=== PATIENT | male | born 1935 | race Hispanic/Latino ===

== ENCOUNTER 2017-02-17 17:12 | Inpatient (IN) | payer MEDICARE ==
--- NOTE | 2017-02-17 17:49 | ED PDOC ---
HPI: Altered Mental Status <Michelle Champagne - Last Filed: 02/17/17 22:33> Additional Complaint(s): Patient is an 81 y/o M with colon cancer, anemia, dm, sent from [facility] who was supposed to be transferred to [facility], but came to [facility], with DNR/DNI, sent for O2 desat to 88%. Patinet non-verbal and unable to provide additional history <Faviola Patterson - Last Filed: 02/22/17 11:25> Time Seen by Provider: 02/17/17 17:37 Chief Complaint (Nursing): Weakness/Neurological Deficit Past Medical History Vital Signs: Last Vital Signs Temp 97.3 F L 02/17/17 19:58 Pulse 75 02/17/17 19:58 Resp 18 02/17/17 19:58 BP 82/46 L 02/17/17 19:58 Pulse Ox 98 02/17/17 21:56 <Michelle Champagne - Last Filed: 02/17/17 22:33> Vital Signs: Last Vital Signs Temp 96.7 F L 02/17/17 17:16 Pulse 85 02/17/17 17:16 Resp 16 02/17/17 17:16 BP 81/54 L 02/17/17 17:16 Pulse Ox 98 02/17/17 17:16 - Family History Family History: States: Unknown Family Hx <Faviola Patterson - Last Filed: 02/22/17 11:25> - Home Medications Home Medications: Ambulatory Orders Medication Instructions Recorded Acetaminophen [Tylenol 325mg tab] 650 mg PO Q4H PRN 02/17/17 Acetaminophen [Tylenol 325mg tab] 650 mg PO Q4H PRN 02/17/17 Albuterol/Ipratropium [Duoneb 3 3 ml IH Q8H 02/17/17 mg/0.5 mg (3 ml) UD] Budesonide [Uceris] 9 mg PO DAILY 02/17/17 Famotidine [Pepcid] 20 mg PO DAILY 02/17/17 Finasteride [Proscar] 5 mg PO DAILY 02/17/17 Latanoprost [Xalatan] 1 drop EACHEYE HS 02/17/17 Linagliptin [Tradjenta] 5 mg PO DAILY 02/17/17 Mag Hydrox/Aluminum Hyd/Simeth 30 ml PO Q4H PRN 02/17/17 [Maalox Advanced Suspension] Magnesium Hydroxide [Milk Of 30 ml PO DAILY PRN 02/17/17 Magnesia] Mesalamine [Asacol HD 800mg] 800 mg PO BID 02/17/17 Saccharomyces Boulardi [Florastor] 250 mg PO BID 02/17/17 Saliva Substitute [Caphosol 15 ml] 2 spray PO QID 02/17/17 Silver Sulfadiazine 1% [Silvadene 1 appl TOP QSHIFT 02/17/17 1%] Tamsulosin [Flomax] 0.8 mg PO HS 02/17/17 Timolol 0.25% Ophth [Timoptic 1 drop EACHEYE DAILY 02/17/17 0.25% Ophth Soln] Vitamin A & D [Vitamin A & D Oint 1 appl TOP QSHIFT 02/17/17 UD Foilpak] cefTRIAXone 1 gm [Rocephin 1 gram 1 gm IVPB DAILY 02/17/17 IVPB] guaiFENesin [Robitussin] 10 ml PO Q6H PRN 02/17/17 - Allergies Allergies/Adverse Reactions: Allergies Allergy/AdvReac Type Severity Reaction Status Date / Time No Known Allergies Allergy Verified 02/17/17 17:15 Review of Systems Review Of Systems: ROS cannot be obtained secondary to pt's inabilty to answer questions. <Faviola Patterson - Last Filed: 02/22/17 11:25> Physical Exam - Physical Exam Appears: Positive for: No Acute Distress (pale, lethargic, non-verbal) Skin: Positive for: Pallor Neck: Positive for: Supple Cardiovascular/Chest: Positive for: Regular Rate, Rhythm, Other (tachypneic) Respiratory: Positive for: Normal Breath Sounds. Negative for: Crackles, Rales , Rhonchi Gastrointestinal/Abdominal: Positive for: Soft. Negative for: Tenderness Extremity: Positive for: Other (moving extremities x 4) Neurologic/Psych: Positive for: Alert <Faviola Patterson - Last Filed: 02/22/17 11:25> - Laboratory Results Result Diagrams: 02/17/17 18:10 02/17/17 18:10 <Michelle Champagne A - Last Filed: 02/17/17 22:33> - Laboratory Results Result Diagrams: 02/18/17 12:05 02/18/17 12:05 - ECG O2 Sat by Pulse Oximetry: 98 <Faviola Patterson - Last Filed: 02/22/17 11:25> Medical Decision Making Medical Decision Making: Patient non-verbal and unable to communicate. Call placed to nephew Eb Joseph [phone] as DNR/DNI says "limited treatment" and wanted to clarify. He is reporting that patient is DNR/DNI with measures including ivf, pain medication and antibiotics but not invasive measures such as central line placement and pressors. Due to hypotension and lactate 1.6 and due to concern for infection, 1L IVF ordered with antibiotics (will monitor respiratory status as already hypoxic on arrival and unknown chf/ejection fraction). Blood cultures and urine cultures ordered. UA pending. Cxray negative for infiltrate. BNP elevated so will monitor respiratory status. EKG shows NSR at 87bpm with 1st degree AV block, LAD, RBBB, and st changes, but no stemi. Will sign out to Dr. Villalta to await remaining labs and admit <Faviola Patterson - Last Filed: 02/22/17 11:25> Disposition <Michelle Champagne A - Last Filed: 02/17/17 22:33> - Disposition Disposition Time: 19:00 - Pt Status Changed To: Hospital Disposition Of: Inpatient - Admit Certification Admit to Inpatient:: After my assessment, the patient will require hospitalization for at least two midnights. This is because of the severity of symptoms shown, intensity of services needed, and/or the medical risk in this patient being treated as an outpatient. <Faviola Patterson - Last Filed: 02/22/17 11:25> - Clinical Impression Clinical Impression: Hypoxia, Altered mental status, Pneumonia, Sepsis, UTI (urinary tract infection ) - Disposition Condition: SERIOUS
[2017-02-17] MEDS ORDERED: Sodium Chloride 0.9% 500 ML IV ONE ×2 (17:52→18:40)
[2017-02-17 18:16] LABS: BASO % 0.3 % (0.0-2.0); EOS # 0.1 K/uL (0.0-0.7); HEMOGLOBIN 10.1 g/dL (12.0-18.0); LYMPH # 0.1 K/uL (1.0-4.3); LYMPH % 2.3 % (20.0-40.0); MEAN CORPUSCULAR HEMOGLOBIN 28.8 pg (27.0-31.0); MEAN CORPUSCULAR HGB CONC 31.2 g/dL (33.0-37.0); MEAN PLATELET VOLUME 10.8 fl (7.2-11.7); MONO # 0.1 K/uL (0.0-0.8); MONO % 0.9 % (0.0-10.0); NEUT # 5.7 K/uL (1.8-7.0); NEUT % 95.5 % (50.0-75.0); PLATELET COUNT 111 K/uL (130-400); RBC 3.52 Mil/uL (4.40-5.90); RED CELL DISTRIBUTION WIDTH 19.9 % (11.5-14.5)
[2017-02-17 18:29] LABS: VENOUS BLOOD GAS BASE EXCESS -7.9 mmol/L (0.0-2.0); VENOUS BLOOD GAS PCO2 31 mmHg (40-60); VENOUS BLOOD GAS PO2 50 mm/Hg (30-55); VENOUS BLOOD PH 7.34 (7.32-7.43)
[2017-02-17] MEDS ORDERED: cefTRIAXone 1,000 MG in PED IV SYRINGE 1 SYR IVPB STA (18:46)
[2017-02-17 18:53] LABS: ALB/GLOB RATIO 0.8 (1.0-2.1); ALBUMIN 2.3 g/dL (3.5-5.0); ALT/SGPT 26 U/L (21-72); AST/SGOT 6 U/L (17-59); B-TYPE NATRIURETIC PEPTIDE 2440 pg/ml (0-900); BLOOD UREA NITROGEN 65 mg/dl (9-20); CALCIUM 10.6 mg/dL (8.4-10.2); CK-MB 0.69 ng/mL (0.0-3.38); GFR AFRICAN-AMERICAN 54; GFR NON-AFRICAN AMERICAN 45; MAGNESIUM 2.3 MG/DL (1.6-2.3)
[2017-02-17] MEDS ORDERED: Sodium Chloride 0.9% 1,000 ML IV SCH (19:00)
[2017-02-17 19:12] LABS: ABG ALLEN TEST YES; ARTERIAL BLOOD GAS HCO3 17.5 mmol/L (21-28); ARTERIAL BLOOD GAS HEMOGLOBIN 9.6 g/dL (11.7-17.4); ARTERIAL BLOOD GAS O2 CAPACITY 13.4 mL/dL (16-24); ARTERIAL BLOOD GAS O2 CONTENT 13.3 ML/dL (15-23); ARTERIAL BLOOD GAS O2 SAT 99.4 % (95-98); ARTERIAL BLOOD GAS PCO2 27 mm/Hg (35-45); ARTERIAL BLOOD GAS PH 7.35 (7.35-7.45); ARTERIAL BLOOD GAS PO2 124 mm/Hg (80-100); ARTERIAL BLOOD GAS TCO2 15.7 mmol/L (22-28)
[2017-02-17] MEDS ORDERED: Iodixanol 320 MG/ML 100 ML BOTTLE IV ONE (19:28)
[2017-02-17] MEDS ORDERED: Sodium Chloride 0.9% 50 ML IV ONE (19:29)
--- NOTE | 2017-02-17 19:44 | ED PDOC ---
- Laboratory Results Result Diagrams: 02/17/17 18:10 02/17/17 18:10 - ECG O2 Sat by Pulse Oximetry: 98 (RA) Pulse Ox Interpretation: Normal Medical Decision Making Medical Decision Making: Time: 1899 --Patient was transferred from Dr. Maria to ma. --Pending Chest x-ray, chest CT, head CT, and Labs. Time: 2020 --Head CT FINDINGS: Brain: There is dilatation of sulci gyri and ventricles. There is no midline shift. There is decreased attenuation in periventricular white matter. There are no focal masses. There are no focal hemorrhages. Segovia-white differentiation is visualized. Ventricles: See above. Bones: Cranial vault is intact. Soft tissues: unremarkable Sinuses: There is no acute sinusitis. There are retention cysts/polyps in the sinuses. Ears and mastoids: Middle ears and mastoids are unremarkable. Orbits: Orbital contents are unremarkable. IMPRESSION: Atrophy and small vessel disease, no bleed Time: 2034 --Chest CT FINDINGS: Artifacts: Motion artifact degrades image quality. Heart, aorta and Pulmonary arteries: The heart is enlarged. There are coronary artery calcifications. Aorta is prominent, 3.8 cm in diameter.There are vascular calcifications.There is noncalcified plaque in the distal thoracic aorta. Main pulmonary artery is normal in caliber. There are no pulmonary emboli. Lungs and pleural spaces: Trachea and main bronchi are patent.There is no pneumothorax. There are patchy tree in bud opacities greatest in the posterior right upper lobe. There is more focal consolidation in the inferior posterior aspect of the right upper lobe. There are patchy opacities in the right middle lobe. There is a moderate right effusion. There is partial consolidation of the right lower lobe. There is less extensive airspace disease at the left base. There is pleural thickening at the left base. There is a 6 mm left upper lobe pulmonary nodule. There is linear scarring bilaterally. Mediastinum: There are shotty mediastinal nodes area there are no hilar nodes. There is esophageal wall thickening. There is a small hiatal hernia. Thyroid: Thyroid is unremarkable Bones/joints: Bony structures are osteopenic. There are degenerative changes. There are bilateral rib fractures of varying ages. There is compression fracture at L1. There is mild compression deformity superior endplate of T11. There are bridging osteophytes and syndesmophytes at multiple levels. Soft tissues: unremarkable Upper abdomen: There are no acute abnormalities in the visualized portion of the abdomen. Gallbladder is distended, and cm in length.Pancreas is atrophic. There is an IVC filter there are low attenuation lesions in the liver difficult to characterize. IMPRESSION: Cardiomegaly and atherosclerotic disease, no aneurysm, dissection or pulmonary embolus; diffuse esophageal wall thickening infectious/inflammatory versus neoplastic; right pleural effusion with right lower lobe consolidation, atelectasis and/or infiltrate; less extensive airspace disease right upper, right middle and left lower lobes; poorly defined low attenuation hepatic lesions difficult to further characterize; osteopenia, degenerative change, compression fractures and rib fractures Additional findings as described above. Time: 2038 --Levofloxacin 500 mg in 100 ml IVPB Time: 2130 --Admit to hospital routine: As inpatient in telemetry for pneumonia, acute hypoxic failure, hypotension, and sepsis under the care of Dr. Ginger Hurley MD Admission criteria: pneumonia with high CURB score and hypoxia requiring oxygen therapy and IV antibiotics, as well as sepsis and hypotension requiring IVF and IV antibiotics. High risk and threat to life. Scribe~Attestation: Documented by Bianca Muñoz, acting as a scribe for Michelle Champagne MD. Provider Scribe~Attestation: All medical record entries made by the Scribe were at my direction and personally dictated by me. I have reviewed the chart and agree that the record accurately reflects my personal performance of the history, physical exam, medical decision making, and the department course for this patient. I have also personally directed, reviewed, and agree with the discharge instructions and disposition. Disposition Discussed With Dr.: Ginger Hurley Doctor Will See Patient In The: Hospital Counseled Patient/Family Regarding: Studies Performed, Diagnosis - Clinical Impression Clinical Impression: Hypoxia, Altered mental status, Pneumonia, Sepsis - POA Present On Arrival: Poor Glycemic Control Core Measure Indicators: Pneumonia - Disposition Disposition: Admitted as In-Patient Disposition Time: 21:30 Condition: SERIOUS
--- NOTE | 2017-02-17 20:21 | CT ---
EXAM: CT Head Without Intravenous Contrast EXAM DATE/TIME: 02/17/2017 6:51 PM CLINICAL HISTORY: 81 years old, male; Signs and symptoms; Altered mental status/memory loss; Additional info: Altered, hypoxic. Sent phy. Doc. ADDITIONAL HISTORY: colon cancer, anemia and diabetes, DNR/DNI TECHNIQUE: Axial computed tomography images of the head/brain without intravenous contrast. All CT scans at this facility use one or more dose reduction techniques, viz.: automated exposure control; ma/kV adjustment per patient size (including targeted exams where dose is matched to indication; i.e. head); or iterative reconstruction technique. Coronal and sagittal reformatted images were created and reviewed. COMPARISON: CT HEAD OR BRAIN W/O CONT 2012-05-21 14:10 FINDINGS: Brain: There is dilatation of sulci gyri and ventricles. There is no midline shift. There is decreased attenuation in periventricular white matter. There are no focal masses. There are no focal hemorrhages. Segovia-white differentiation is visualized. Ventricles: See above. Bones: Cranial vault is intact. Soft tissues: unremarkable Sinuses: There is no acute sinusitis. There are retention cysts/polyps in the sinuses. Ears and mastoids: Middle ears and mastoids are unremarkable. Orbits: Orbital contents are unremarkable. IMPRESSION: Atrophy and small vessel disease, no bleed
--- NOTE | 2017-02-17 20:35 | CT ---
EXAM: CT Angiography Chest With Intravenous Contrast EXAM DATE/TIME: 02/17/2017 7:16 PM CLINICAL HISTORY: 81 years old, male; Signs and symptoms; Other: Hypoxic; Additional info: Chest pain TECHNIQUE: Axial computed tomographic angiography images of the chest with intravenous contrast using pulmonary embolism protocol. All CT scans at this facility use one or more dose reduction techniques, viz.: automated exposure control; ma/kV adjustment per patient size (including targeted exams where dose is matched to indication; i.e. head); or iterative reconstruction technique. MIP reconstructed images were created and reviewed. Coronal and sagittal reformatted images were created and reviewed. CONTRAST: 70 mL of [id number] administered intravenously. COMPARISON: CR - CHEST PORTABLE 2017-02-17 18:39 FINDINGS: Artifacts: Motion artifact degrades image quality. Heart, aorta and Pulmonary arteries: The heart is enlarged. There are coronary artery calcifications. Aorta is prominent, 3.8 cm in diameter.There are vascular calcifications.There is noncalcified plaque in the distal thoracic aorta. Main pulmonary artery is normal in caliber. There are no pulmonary emboli. Lungs and pleural spaces: Trachea and main bronchi are patent.There is no pneumothorax. There are patchy tree in bud opacities greatest in the posterior right upper lobe. There is more focal consolidation in the inferior posterior aspect of the right upper lobe. There are patchy opacities in the right middle lobe. There is a moderate right effusion. There is partial consolidation of the right lower lobe. There is less extensive airspace disease at the left base. There is pleural thickening at the left base. There is a 6 mm left upper lobe pulmonary nodule. There is linear scarring bilaterally. Mediastinum: There are shotty mediastinal nodes area there are no hilar nodes. There is esophageal wall thickening. There is a small hiatal hernia. Thyroid: Thyroid is unremarkable Bones/joints: Bony structures are osteopenic. There are degenerative changes. There are bilateral rib fractures of varying ages. There is compression fracture at L1. There is mild compression deformity superior endplate of T11. There are bridging osteophytes and syndesmophytes at multiple levels. Soft tissues: unremarkable Upper abdomen: There are no acute abnormalities in the visualized portion of the abdomen. Gallbladder is distended, and cm in length.Pancreas is atrophic. There is an IVC filter there are low attenuation lesions in the liver difficult to characterize. IMPRESSION: Cardiomegaly and atherosclerotic disease, no aneurysm, dissection or pulmonary embolus; diffuse esophageal wall thickening infectious/inflammatory versus neoplastic; right pleural effusion with right lower lobe consolidation, atelectasis and/or infiltrate; less extensive airspace disease right upper, right middle and left lower lobes; poorly defined low attenuation hepatic lesions difficult to further characterize; osteopenia, degenerative change, compression fractures and rib fractures Additional findings as described above.
[2017-02-17] MEDS ORDERED: levoFLOXacin 500 mg in D5W 500 MG/100 ML BAG IVPB STA (20:39)
[2017-02-17 21:04] LABS: ANISOCYTOSIS MODERATE; BANDS 6 % (0-2); BURR CELLS SLIGHT; EOSINOPHIL 1 % (0-7); LARGE PLATELETS PRESENT; LYMPHOCYTE 6 % (20-50); MONOCYTE 4 % (0-10); NEUTROPHIL 83 % (42-75); OVALOCYTES SLIGHT; PLATELET ESTIMATE NORMAL (NORMAL); TOTAL CELLS COUNTED 100
[2017-02-17] MEDS ORDERED: Piperacillin/Tazobact 3.375 GM in Sodium Chloride 0.9% 100 ML IVPB STA (21:30)
[2017-02-17] MEDS ORDERED: LEVOFLOXACIN IVPB ONE (22:11)
[2017-02-17] MEDS ORDERED: D5W IVPB ONE (22:11)
[2017-02-17 22:29] LABS: SQUAMOUS EPITHIAL < 1 /hpf (0-5); URINE BACTERIA MANY (<OCC); URINE BILIRUBIN NEGATIVE (NEGATIVE); URINE BLOOD NEGATIVE (NEGATIVE); URINE CLARITY CLOUDY (Clear); URINE COLOR YELLOW (YELLOW); URINE GLUCOSE (UA) NEG (Normal); URINE LEUKOCYTE ESTERASE LARGE Leu/uL (Negative); URINE NITRATE NEGATIVE (NEGATIVE); URINE PROTEIN NEGATIVE (NEGATIVE); URINE UROBILINOGEN 0.2-1.0 mg/dL (0.2-1.0)
[2017-02-17] MEDS ORDERED: Piperacillin/Tazobact 3.375 gm Inj IVPB ONE (22:48)
[2017-02-17] MEDS ORDERED: levoFLOXacin 500 mg in D5W 500 MG/100 ML BAG IVPB ONE (22:48)
[2017-02-18] MEDS ORDERED: Magnesium Hydroxide Susp 30 ml UD PO PRN (01:31)
[2017-02-18] MEDS ORDERED: Alum-Mag Hydrox-Simethicone Susp (30 mL) PO PRN (01:31)
[2017-02-18] MEDS ORDERED: guaiFENesin 200 mg/10 ml Syrup UD PO PRN (01:31)
[2017-02-18] MEDS ORDERED: Silver Sulfadiazine 1% Cream (20 gm) TOP SCH (01:45)
[2017-02-18] MEDS: Albuterol-Ipratrop 3 mg / 0.5 (3 ml) UD IH SCH ×4 (04:02→19:23)
[2017-02-18] MEDS ORDERED: Sodium Chloride 0.9% 1,000 ML IV SCH ×4 (04:50→17:15)
[2017-02-18] MEDS ORDERED: Chlorhexidine Gluconate 1 APPL/PKT TP ONE (04:54)
[2017-02-18] MEDS: Piperacillin/Tazobact 3.375 GM in Sodium Chloride 0.9% 100 ML IVPB SCH ×4 (05:49→21:43)
--- NOTE | 2017-02-18 05:51 | PCM.RRT ---
<Sarthak Martínez - Last Filed: 02/18/17 06:09> PATENT COUNSEL Nurse Assessment - Situation PATENT COUNSEL Responder Arrival Time: 04:48 Room Number: [id number] PATENT COUNSEL Reason for Call: Hypotension PATENT COUNSEL Called By: RN I.Reason for PATENT COUNSEL - A) Acute Change in Patient: Subjective: -PATENT COUNSEL was called by RN at 04:44 am on a 81 y/o M with a PNHx of Colon cancer, anemia, BPH and DM. Pt was admitted fo evaluation and management of hypoxia episodes, hypothermia, sepsis suspicion and hypotension. Last night, as per nurse, VS were BP 93/53mmHg, HR 75 and temp 97.1. Pt has an order for DNR/DNI requested by his family. PATENT COUNSEL team arrived at 04:47 O: -VS at 04:47, BP 56/44, HR 120s, temp 97.3 degF, sat O2 71%. -PE: Pt was found lethargic, lying on bed and unresponsive. Gen: Pt lethargic, unable to communicate, lying on bed, unresponsive, but able to move upper extremities. HEENT: EOMI, no ictericia, dry mucosa on orpharyngeal CV: tachycardic. Lungs: normal breathing pattern, not in acute distress. Management: -Bed was reclined, with head and back under horizontal line, oropharyngeal suctioning and O2 supply by mask was initiated. -Family member was contacted by Dr Plunkett. Family re-stated to provide only comfort care to pt. -IV NSS 0.9% Bolus initiated, maintenance at 250mL/hr after bolus ordered. -Scopolamine patch Q3D ordered. Outcome: -VS at 05:06, BP: 61/--, HR 109bpm, satO2 94%. Plan: -Consult to hospice services. -Continue IV hydration. -Observation and VS monitoring. Tanya PGY-1. <Gilbert Plunkett - Last Filed: 02/18/17 22:21> PATENT COUNSEL Nurse Assessment - Vital Signs Vital Signs: Rapid Response Vital Sign Blood Pressure 56/37 Pulse Rate 70 Respiratory Rate 13 Temperature 97.3 F Oxygen Saturation 95 - Vital Signs at end of PATENT COUNSEL Vital Signs at end of PATENT COUNSEL: Rapid Response End Vital Sign Blood Pressure 58/37 Pulse Rate 68 Respiratory Rate 12 Temperature 97.3 F O2 Sat by Pulse Oximetry 95 Attending/Attestation - Attestation I have personally seen and examined this patient.: No I have fully participated in the care of the patient.: No I have reviewed all pertinent clinical information, including history, physical exam and plan: No Notes (Text): 02/18/17 22:17 I saw and examined this patient shoulder to shoulder with Dr Lucero. The assessment and plan represent my direct input. The patient was Hypotensive and Hypoxic. Nonrebratther Bag mask applied IV Fluid NS bolus Family consulted who indicated comfort measures Patient DNR/DNI - Consult Hospice Gilbert Plunkett MD
[2017-02-18] MEDS: Sodium Chloride 0.9% 1,000 ML IV SCH ×6 (05:54→21:45)
[2017-02-18] MEDS: Insulin Lispro (humaLOG) 100 Units/ml Inj SC SCH ×4 (07:52→21:46)
[2017-02-18 08:43] LABS: HEMOGLOBIN 8.5 g/dL (12.0-18.0); MEAN CELL VOLUME 90.8 fl (80.0-94.0); MEAN CORPUSCULAR HEMOGLOBIN 29.5 pg (27.0-31.0); MEAN CORPUSCULAR HGB CONC 32.5 g/dL (33.0-37.0); RBC 2.87 Mil/uL (4.40-5.90); RED CELL DISTRIBUTION WIDTH 19.8 % (11.5-14.5); WHITE BLOOD COUNT 7.3 K/uL (4.8-10.8)
[2017-02-18] MEDS ORDERED: BUDESONIDE 9 MG PO SCH (09:00)
[2017-02-18 09:03] LABS: ALB/GLOB RATIO 0.7 (1.0-2.1); ALBUMIN 1.8 g/dL (3.5-5.0); CALCIUM 9.4 mg/dL (8.4-10.2)
[2017-02-18] MEDS: Timolol 0.25% Ophth SOLN OU SCH (09:36)
[2017-02-18] MEDS: Vitamins A & D Oint UD Foilpak TOP SCH ×2 (09:36→21:45)
[2017-02-18] MEDS: Saccharomyces Boulardi 250 mg Cap PO SCH ×2 (09:38→17:58)
[2017-02-18] MEDS: Saliva Substitute(Caphosol) 15 ML SOL MM SCH ×4 (09:39→21:47)
[2017-02-18] MEDS: Silver Sulfadiazine 1% Cream (20 gm) TOP SCH (09:40)
--- NOTE | 2017-02-18 11:16 | RAD ---
HISTORY: altered COMPARISON: No prior. FINDINGS: LUNGS: Bibasilar opacity may reflect deltoid or atelectasis. PLEURA: Minimal right pleural effusion. No evidence of left pleural effusion. No pneumothorax. CARDIOVASCULAR: Normal. OSSEOUS STRUCTURES: No significant abnormalities. VISUALIZED UPPER ABDOMEN: Normal. OTHER FINDINGS: None. IMPRESSION: Bibasilar opacity, infiltrate versus atelectasis. Minimal right pleural effusion.
[2017-02-18] MEDS: Potassium CL 10 MEQ/50 ML 50 ML IVPB SCH ×6 (11:30→23:30)
[2017-02-18] MEDS ORDERED: Dextrose 50% SYRINGE Inj (50 ml) IVP ONE (11:41)
--- NOTE | 2017-02-18 11:44 | CARD ---
APPROVED REPORT EKG Measurement Heart [id number] <Conclusion> Sinus rhythm with 1st degree AV block with occasional premature ventricular complexes Left axis deviation Right bundle branch block Inferior infarct, age undetermined Anterolateral infarct, age undetermined Abnormal ECG
--- NOTE | 2017-02-18 12:15 | PCM.RRT ---
<Sultan Nayeli - Last Filed: 02/18/17 15:06> SIX SIGMA BLACK BELT ENGINEER Nurse Assessment - Situation SIX SIGMA BLACK BELT ENGINEER Responder Arrival Time: 04:48 Room Number: [id number] SIX SIGMA BLACK BELT ENGINEER Reason for Call: Hypotension SIX SIGMA BLACK BELT ENGINEER Called By: RN - IV IV Inserted during SIX SIGMA BLACK BELT ENGINEER?: No IV Fluids Initiated During SIX SIGMA BLACK BELT ENGINEER?: Normal Saline at 999ml/hr. - Respiratory Oxygen Delivery Method: Mask Received Nebulizer Treatments: No Was the Patient Ventilated with Bag/Mask 100% O2?: No Secretions Suctioned?: Yes Was the Patient Intubated?: No Was the Patient Placed on a Ventilator?: No - Diagnostic Test Ordered EKG: No Chest X-Ray: No CT Scan: No - Vital Signs Vital Signs: Rapid Response Vital Sign Blood Pressure 54/40 Pulse Rate 108 Respiratory Rate 20 - Vital Signs at end of SIX SIGMA BLACK BELT ENGINEER Vital Signs at end of SIX SIGMA BLACK BELT ENGINEER: Rapid Response End Vital Sign Blood Pressure 63/37 Pulse Rate 95 Respiratory Rate 21 O2 Sat by Pulse Oximetry 89 - Recommendations SIX SIGMA BLACK BELT ENGINEER Level of Care Recommendations: Remain in current setting I.Reason for SIX SIGMA BLACK BELT ENGINEER - A) Acute Change in Patient: Subjective: SIX SIGMA BLACK BELT ENGINEER note: SIX SIGMA BLACK BELT ENGINEER was called by RN at 11:56 am on a 81 yo male who is admitted for pneumonia, sepsis and hypotension. Pt has hx colon cancer, anemia, BPH and DMII. Pt has an order for DNR/DNI requested by his family. O: Upon arrival pt's VS: 52/37, HR 70, RR 13. T 97.3, PULSE OX 95% PE: Pt was found lethargic, lying on bed and unresponsive. Gen: Pt lethargic, unable to communicate, lying on bed. CV: RRR, normal s1,s2 Lungs: CTAB/L Assessment: 81 yo admitted for hypotension, pnumonia and sepsis has BP 52/37. Plan: -2 L IV NSS 0.9% Bolus initiated, maintenance at 150mL/hr after bolus ordered. -EKG, cbc, cmp, mg, phos, troponin -Family re-stated to provide only comfort care. No pressor or central line as per family member. Dr. Gallagher spoke w/ pt's nephew. -Dr. Gallagher spoke with PCP w/ Dr. Hurley. -SIX SIGMA BLACK BELT ENGINEER was called off at 12:30 pm -Vitals at end of SIX SIGMA BLACK BELT ENGINEER: BP 58/37, HR 68, RR 12, T 97.3, PULSE OX 95% SIX SIGMA BLACK BELT ENGINEER team facilitator: Dr. Gallagher SIX SIGMA BLACK BELT ENGINEER team: Dr. Correa, Dr. Daniel, residents: Dr. Dorman,PGY3, Dr. Paige, PGY2, Dr. Tyler, PGY1. <ElliottBenita - Last Filed: 02/18/17 17:15> SIX SIGMA BLACK BELT ENGINEER Nurse Assessment - Vital Signs Vital Signs: Rapid Response Vital Sign Blood Pressure 56/37 Pulse Rate 70 Respiratory Rate 13 Temperature 97.3 F Oxygen Saturation 95 - Vital Signs at end of SIX SIGMA BLACK BELT ENGINEER Vital Signs at end of SIX SIGMA BLACK BELT ENGINEER: Rapid Response End Vital Sign Blood Pressure 58/37 Pulse Rate 68 Respiratory Rate 12 Temperature 97.3 F O2 Sat by Pulse Oximetry 95 Attending/Attestation - Attestation I have personally seen and examined this patient.: Yes I have fully participated in the care of the patient.: Yes I have reviewed all pertinent clinical information, including history, physical exam and plan: Yes Notes (Text): Responded to the SIX SIGMA BLACK BELT ENGINEER with the residents SIX SIGMA BLACK BELT ENGINEER called bec of hypotension Hypotension likely sec to Sepsis due to Pneumonia - pt is bacteremic ( Gram neg rods) - IVF hydration- 2 IV lines placed - cont IV Zosyn - spoke with nephnamrata Parson- next of kin - as per pt's wish - pt is DNR/DNI - Family only wants IVF and antibiotics - no Pressors, no no Cebtral lines, no intubation - cont Oxygen per Ventimask PMD : Dr Hurley notified of event
[2017-02-18 12:26] LABS: HEMOGLOBIN 7.5 g/dL (12.0-18.0); MEAN CELL VOLUME 91.8 fl (80.0-94.0); MEAN CORPUSCULAR HGB CONC 31.6 g/dL (33.0-37.0); RBC 2.59 Mil/uL (4.40-5.90); RED CELL DISTRIBUTION WIDTH 19.6 % (11.5-14.5); WHITE BLOOD COUNT 7.7 K/uL (4.8-10.8)
--- NOTE | 2017-02-18 12:49 | CARD ---
APPROVED REPORT EKG Measurement Heart [id number] <Conclusion> Undetermined rhythm Left axis deviation Right bundle branch block Cannot rule out Inferior infarct, age undetermined Abnormal ECG
[2017-02-18 12:57] LABS: ALB/GLOB RATIO 0.7 (1.0-2.1); ALBUMIN 1.5 g/dL (3.5-5.0); MAGNESIUM 1.9 MG/DL (1.6-2.3)
[2017-02-18 13:00] LABS: TROPONIN I 0.035 ng/mL (0.00-0.120)
--- NOTE | 2017-02-18 16:50 | CP.PCM.HP ---
Past Patient History - Infectious Disease Hx of Infectious Diseases: None - Past Medical History & Family History Past Medical History?: Yes - Past Social History Smoking Status: Never Smoked - CARDIAC Hx Hypertension: Yes (secondary) - HEENT Hx Glaucoma: Yes (unspecified) - RENAL Hx Chronic Kidney Disease: No - ENDOCRINE/METABOLIC Hx Diabetes Mellitus Type 2: Yes - HEMATOLOGICAL/ONCOLOGICAL Hx Blood Disorders: Yes Hx Anemia: Yes - MUSCULOSKELETAL/RHEUMATOLOGICAL Hx Falls: No - GASTROINTESTINAL Hx Gastrointestinal Disorders: Yes Hx Gastroesophageal Reflux: Yes - GENITOURINARY/GYNECOLOGICAL Hx Prostate Problems: Yes - PSYCHIATRIC Hx Substance Use: No - ANESTHESIA Hx Anesthesia: Yes Hx Anesthesia Reactions: No Meds Allergies/Adverse Reactions: Allergies Allergy/AdvReac Type Severity Reaction Status Date / Time No Known Allergies Allergy Verified 02/17/17 17:15 Results - Vital Signs Recent Vital Signs: Last Vital Signs Temp 94.1 F L 02/18/17 13:00 Pulse 69 02/18/17 16:31 Resp 16 02/18/17 16:31 BP 57/39 L 02/18/17 16:31 Pulse Ox 100 02/18/17 16:31 - Labs Result Diagrams: 02/18/17 12:05 02/18/17 12:05 Labs: Laboratory Results - last 24 hr 02/17/17 02/17/17 02/17/17 18:10 18:10 18:10 WBC 6.0 RBC 3.52 L Hgb 10.1 L Hct 32.4 L MCV 92.0 MCH 28.8 MCHC 31.2 L RDW 19.9 H Plt Count 111 L MPV 10.8 Neut % (Auto) 95.5 H Lymph % (Auto) 2.3 L [place] % (Auto) 0.9 Eos % (Auto) 1.0 Baso % (Auto) 0.3 Neut # 5.7 Lymph # 0.1 L [place] # 0.1 Eos # 0.1 Baso # 0.0 Neutrophils % (Manual) 83 H Band Neutrophils % 6 H Lymphocytes % (Manual) 6 L Monocytes % (Manual) 4 Eosinophils % (Manual) 1 Platelet Estimate Normal Large Platelets Present Anisocytosis (manual) Moderate Macrocytosis (manual) Slight Ovalocytes Slight Bruna Cells Slight pCO2 pO2 HCO3 ABG pH ABG Total CO2 ABG O2 Saturation ABG O2 Content ABG Base Excess ABG Hemoglobin ABG Carboxyhemoglobin POC ABG HHb (Measured) ABG Methemoglobin ABG O2 Capacity Mejia Test VBG pH VBG pCO2 VBG HCO3 VBG Total CO2 VBG O2 Sat (Calc) VBG Base Excess VBG Potassium A-a O2 Difference Hgb O2 Saturation Glucose Lactate Vent Mode FiO2 Sodium 144 Potassium 3.6 Chloride 117 H Carbon Dioxide 14 L Anion Gap 17 BUN 65 H Creatinine 1.5 Est GFR ( Amer) 54 Est GFR (Non-Af Amer) 45 POC Glucose (mg/dL) Random Glucose 161 H Lactic Acid Calcium 10.6 H Phosphorus 4.3 Magnesium 2.3 Total Bilirubin 0.3 AST 6 L ALT 26 Alkaline Phosphatase 200 H Total Creatine Kinase < 20 L CK-MB (Mass) 0.69 Troponin I < 0.0120 NT-Pro-B Natriuret Pep 2440 H Total Protein 5.1 L Albumin 2.3 L Globulin 2.8 Albumin/Globulin Ratio 0.8 L Venous Blood Potassium Urine Color Urine Clarity Urine pH Ur Specific [place] Urine Protein Urine Glucose (UA) Urine Ketones Urine Blood Urine Nitrate Urine Bilirubin Urine Urobilinogen Ur Leukocyte Esterase Urine RBC (Auto) Urine Microscopic WBC Ur Squamous Epith Cells Urine Bacteria Influenza Typ A,B (EIA) Negative for flu a/b 02/17/17 02/17/17 02/17/17 18:20 19:00 22:10 WBC RBC Hgb Hct MCV MCH MCHC RDW Plt Count MPV Neut % (Auto) Lymph % (Auto) [place] % (Auto) Eos % (Auto) Baso % (Auto) Neut # Lymph # [place] # Eos # Baso # Neutrophils % (Manual) Band Neutrophils % Lymphocytes % (Manual) Monocytes % (Manual) Eosinophils % (Manual) Platelet Estimate Large Platelets Anisocytosis (manual) Macrocytosis (manual) Ovalocytes [place] Cells pCO2 27 L pO2 50 124 H HCO3 17.5 L ABG pH 7.35 ABG Total CO2 15.7 L ABG O2 Saturation 99.4 H ABG O2 Content 13.3 L ABG Base Excess -9.5 L ABG Hemoglobin 9.6 L ABG Carboxyhemoglobin 0.5 POC ABG HHb (Measured) 0.6 ABG Methemoglobin 2.3 ABG O2 Capacity 13.4 L Mejia Test Yes VBG pH 7.34 VBG pCO2 31 L VBG HCO3 18.4 VBG Total CO2 17.7 L VBG O2 Sat (Calc) 87.8 H VBG Base Excess -7.9 L VBG Potassium 3.5 L A-a O2 Difference 555.0 Hgb O2 Saturation 96.6 Glucose 172 H Lactate 1.6 Vent Mode Nrm FiO2 21.0 100.0 Sodium 144.0 Potassium Chloride 121.0 H Carbon Dioxide Anion Gap BUN Creatinine Est GFR ( Amer) Est GFR (Non-Af Amer) POC Glucose (mg/dL) Random Glucose Lactic Acid Calcium Phosphorus Magnesium Total Bilirubin AST ALT Alkaline Phosphatase Total Creatine Kinase CK-MB (Mass) Troponin I NT-Pro-B Natriuret Pep Total Protein Albumin Globulin Albumin/Globulin Ratio Venous Blood Potassium 3.5 L Urine Color Yellow Urine Clarity Cloudy Urine pH 6.0 Ur Specific [place] < 1.005 Urine Protein Negative Urine Glucose (UA) Neg Urine Ketones Negative Urine Blood Negative Urine Nitrate Negative Urine Bilirubin Negative Urine Urobilinogen 0.2-1.0 Ur Leukocyte Esterase Large Urine RBC (Auto) 4 H Urine Microscopic WBC 19 H Ur Squamous Epith Cells < 1 Urine Bacteria Many H Influenza Typ A,B (EIA) 02/18/17 02/18/17 02/18/17 04:47 08:25 08:25 WBC 7.3 RBC 2.87 L Hgb 8.5 L Hct 26.1 L MCV 90.8 MCH 29.5 MCHC 32.5 L RDW 19.8 H Plt Count 83 L D MPV Neut % (Auto) Lymph % (Auto) [place] % (Auto) Eos % (Auto) Baso % (Auto) Neut # Lymph # [place] # Eos # Baso # Neutrophils % (Manual) Band Neutrophils % Lymphocytes % (Manual) Monocytes % (Manual) Eosinophils % (Manual) Platelet Estimate Large Platelets Anisocytosis (manual) Macrocytosis (manual) Ovalocytes Bruna Cells pCO2 pO2 HCO3 ABG pH ABG Total CO2 ABG O2 Saturation ABG O2 Content ABG Base Excess ABG Hemoglobin ABG Carboxyhemoglobin POC ABG HHb (Measured) ABG Methemoglobin ABG O2 Capacity Mejia Test VBG pH VBG pCO2 VBG HCO3 VBG Total CO2 VBG O2 Sat (Calc) VBG Base Excess VBG Potassium A-a O2 Difference Hgb O2 Saturation Glucose Lactate Vent Mode FiO2 Sodium 147 Potassium 2.9 L Chloride 122 H Carbon Dioxide 14 L Anion Gap 14 BUN 59 H Creatinine 1.5 Est GFR ( Amer) 54 Est GFR (Non-Af Amer) 45 POC Glucose (mg/dL) 92 Random Glucose 84 Lactic Acid Calcium 9.4 Phosphorus Magnesium Total Bilirubin 0.5 AST 9 L D ALT 27 Alkaline Phosphatase 154 H D Total Creatine Kinase CK-MB (Mass) Troponin I NT-Pro-B Natriuret Pep Total Protein 4.2 L Albumin 1.8 L D Globulin 2.5 Albumin/Globulin Ratio 0.7 L Venous Blood Potassium Urine Color Urine Clarity Urine pH Ur Specific [place] Urine Protein Urine Glucose (UA) Urine Ketones Urine Blood Urine Nitrate Urine Bilirubin Urine Urobilinogen Ur Leukocyte Esterase Urine RBC (Auto) Urine Microscopic WBC Ur Squamous Epith Cells Urine Bacteria Influenza Typ A,B (EIA) 02/18/17 02/18/17 02/18/17 11:26 12:05 12:05 WBC 7.7 RBC 2.59 L Hgb 7.5 L Hct 23.7 L MCV 91.8 MCH 29.0 MCHC 31.6 L RDW 19.6 H Plt Count 65 L MPV Neut % (Auto) Lymph % (Auto) [place] % (Auto) Eos % (Auto) Baso % (Auto) Neut # Lymph # [place] # Eos # Baso # Neutrophils % (Manual) Band Neutrophils % Lymphocytes % (Manual) Monocytes % (Manual) Eosinophils % (Manual) Platelet Estimate Large Platelets Anisocytosis (manual) Macrocytosis (manual) Ovalocytes [place] Cells pCO2 pO2 HCO3 ABG pH ABG Total CO2 ABG O2 Saturation ABG O2 Content ABG Base Excess ABG Hemoglobin ABG Carboxyhemoglobin POC ABG HHb (Measured) ABG Methemoglobin ABG O2 Capacity Mejia Test VBG pH VBG pCO2 VBG HCO3 VBG Total CO2 VBG O2 Sat (Calc) VBG Base Excess VBG Potassium A-a O2 Difference Hgb O2 Saturation Glucose Lactate Vent Mode FiO2 Sodium 148 Potassium 3.1 L Chloride 124 H Carbon Dioxide 15 L Anion Gap 12 BUN 57 H Creatinine 1.5 Est GFR ( Amer) 54 Est GFR (Non-Af Amer) 45 POC Glucose (mg/dL) 70 Random Glucose 163 H Lactic Acid Calcium 9.0 Phosphorus 3.2 Magnesium 1.9 Total Bilirubin 0.3 AST 8 L ALT 26 Alkaline Phosphatase 115 Total Creatine Kinase CK-MB (Mass) Troponin I 0.0350 NT-Pro-B Natriuret Pep Total Protein 3.6 L Albumin 1.5 L Globulin 2.1 L Albumin/Globulin Ratio 0.7 L Venous Blood Potassium Urine Color Urine Clarity Urine pH Ur Specific [place] Urine Protein Urine Glucose (UA) Urine Ketones Urine Blood Urine Nitrate Urine Bilirubin Urine Urobilinogen Ur Leukocyte Esterase Urine RBC (Auto) Urine Microscopic WBC Ur Squamous Epith Cells Urine Bacteria Influenza Typ A,B (EIA) 02/18/17 02/18/17 02/18/17 12:05 12:10 16:19 WBC RBC Hgb Hct MCV MCH MCHC RDW Plt Count MPV Neut % (Auto) Lymph % (Auto) [place] % (Auto) Eos % (Auto) Baso % (Auto) Neut # Lymph # [place] # Eos # Baso # Neutrophils % (Manual) Band Neutrophils % Lymphocytes % (Manual) Monocytes % (Manual) Eosinophils % (Manual) Platelet Estimate Large Platelets Anisocytosis (manual) Macrocytosis (manual) Ovalocytes Bruna Cells pCO2 pO2 HCO3 ABG pH ABG Total CO2 ABG O2 Saturation ABG O2 Content ABG Base Excess ABG Hemoglobin ABG Carboxyhemoglobin POC ABG HHb (Measured) ABG Methemoglobin ABG O2 Capacity Mejia Test VBG pH VBG pCO2 VBG HCO3 VBG Total CO2 VBG O2 Sat (Calc) VBG Base Excess VBG Potassium A-a O2 Difference Hgb O2 Saturation Glucose Lactate Vent Mode FiO2 Sodium Potassium Chloride Carbon Dioxide Anion Gap BUN Creatinine Est GFR ( Amer) Est GFR (Non-Af Amer) POC Glucose (mg/dL) 169 H 103 Random Glucose Lactic Acid 2.7 H Calcium Phosphorus Magnesium Total Bilirubin AST ALT Alkaline Phosphatase Total Creatine Kinase CK-MB (Mass) Troponin I NT-Pro-B Natriuret Pep Total Protein Albumin Globulin Albumin/Globulin Ratio Venous Blood Potassium Urine Color Urine Clarity Urine pH Ur Specific [place] Urine Protein Urine Glucose (UA) Urine Ketones Urine Blood Urine Nitrate Urine Bilirubin Urine Urobilinogen Ur Leukocyte Esterase Urine RBC (Auto) Urine Microscopic WBC Ur Squamous Epith Cells Urine Bacteria Influenza Typ A,B (EIA)
[2017-02-18] MEDS ORDERED: Potassium CL 10 MEQ/50 ML 50 ML IVPB SCH (19:00)
[2017-02-18] MEDS: Latanoprost 0.005% Opht SOUTION OU SCH (21:44)
[2017-02-19] MEDS: Potassium CL 10 MEQ/50 ML 50 ML IVPB SCH ×2 (00:41→01:47)
[2017-02-19] MEDS: Albuterol-Ipratrop 3 mg / 0.5 (3 ml) UD IH SCH ×4 (00:59→19:51)
[2017-02-19] MEDS: Sodium Chloride 0.9% 1,000 ML IV SCH ×3 (01:50→18:31)
[2017-02-19] MEDS: Piperacillin/Tazobact 3.375 GM in Sodium Chloride 0.9% 100 ML IVPB SCH ×4 (04:08→21:27)
[2017-02-19] MEDS: Insulin Lispro (humaLOG) 100 Units/ml Inj SC SCH ×4 (06:55→22:02)
[2017-02-19] MEDS: Saliva Substitute(Caphosol) 15 ML SOL MM SCH ×4 (09:53→21:22)
[2017-02-19] MEDS: Saccharomyces Boulardi 250 mg Cap PO SCH ×2 (09:53→16:16)
[2017-02-19] MEDS: Timolol 0.25% Ophth SOLN OU SCH (09:54)
[2017-02-19] MEDS: Vitamins A & D Oint UD Foilpak TOP SCH ×2 (09:55→21:27)
[2017-02-19] MEDS: Silver Sulfadiazine 1% Cream (20 gm) TOP SCH ×2 (09:55→21:26)
--- NOTE | 2017-02-19 13:45 | CP.PCM.PN ---
Subjective - Date & Time of Evaluation Date of Evaluation: 02/19/17 Time of Evaluation: 13:25 Objective - Vital Signs/Intake and Output Vital Signs (last 24 hours): Temp Pulse Resp BP Pulse Ox 92.1 F L 64 18 83/53 L 98 02/19/17 13:04 02/19/17 13:04 02/19/17 13:04 02/19/17 13:04 02/19/17 13:04 Intake and Output: 02/19/17 02/19/17 06:59 18:59 Intake Total 4200 Output Total 50 Balance 4150 - Medications Medications: Current Medications Acetaminophen (Tylenol 325mg Tab) 650 mg PO Q4H PRN PRN Reason: Temp >100 Acetaminophen (Tylenol 325mg Tab) 650 mg PO Q4H PRN PRN Reason: Pain, Mild (1-3) Al Hydrox/Mg Hydrox/Simethicone (Maalox Plus 30 Ml) 30 ml PO Q4H PRN PRN Reason: heartburn/indigestion Albuterol/Ipratropium (Duoneb 3 Mg/0.5 Mg (3 Ml) Ud) 3 ml IH RQ6 [facility] Last Admin: 02/19/17 13:18 Dose: 3 ml Famotidine (Pepcid) 20 mg PO DAILY [facility] Last Admin: 02/19/17 09:54 Dose: Not Given Finasteride (Proscar) 5 mg PO DAILY [facility] Last Admin: 02/19/17 09:54 Dose: Not Given Guaifenesin (Robitussin) 200 mg PO Q6H PRN PRN Reason: Cough Heparin Sodium (Porcine) (Heparin) 5,000 units SC Q8 [facility] PRN Reason: Protocol Last Admin: 02/19/17 09:57 Dose: 5,000 units Home Med (Budesonide [Uceris]) 9 mg PO DAILY [facility] Piperacillin Sod/Tazobactam (Sod 3.375 gm/ Sodium Chloride) 100 mls @ 100 mls/ hr IVPB Q6 [facility] PRN Reason: Protocol Last Admin: 02/19/17 10:00 Dose: 100 mls/hr Sodium Chloride (Sodium Chloride 0.9%) 1,000 mls @ 999 mls/hr IV .Q1H1M [facility] Stop: 02/19/17 17:01 Last Admin: 02/18/17 18:04 Dose: 999 mls/hr Insulin Human Lispro (Humalog) 0 units SC ACHS [facility] PRN Reason: Protocol Last Admin: 02/19/17 06:55 Dose: Not Given Latanoprost (Xalatan Opht) 1 drop OU HS [facility] Last Admin: 02/18/17 21:44 Dose: 1 drop Magnesium Hydroxide (Milk Of Magnesia) 30 ml PO DAILY PRN PRN Reason: Constipation Mesalamine (Delzicol) 800 mg PO BID [facility] Saccharomyces Boulardii (Florastor) 250 mg PO BID [facility] Last Admin: 02/19/17 09:53 Dose: Not Given Saliva Substitute (Caphosol 15 Ml) 15 ml MM QID [facility] Last Admin: 02/19/17 09:53 Dose: Not Given Scopolamine (Transderm-Scop) 1 patch TD Q3D [facility] Last Admin: 02/18/17 06:02 Dose: 1 patch Silver Sulfadiazine (Silvadene 1% 20 Gm) 1 ea TOP [facility] Last Admin: 02/19/17 09:55 Dose: 1 applic Sitagliptin Phosphate (Januvia) 50 mg PO DAILY [facility] Last Admin: 02/19/17 09:54 Dose: Not Given Tamsulosin HCl (Flomax) 0.8 mg PO HS [facility] Last Admin: 02/18/17 21:47 Dose: Not Given Timolol Maleate (Timoptic 0.25% Oph Soln) 1 drop OU DAILY [facility] Last Admin: 02/19/17 09:54 Dose: 1 drop Vitamin A (Vitamin A & D Oint Ud Foilpak) 1 ea [facility] Last Admin: 02/19/17 09:55 Dose: 1 ea - Labs Labs: 02/18/17 12:05 02/18/17 12:05
[2017-02-19] MEDS: Latanoprost 0.005% Opht SOUTION OU SCH (21:26)
[2017-02-19] MEDS ORDERED: Dextrose 50% SYRINGE Inj (50 ml) IVP ONE (21:47)
[2017-02-20] MEDS: Sodium Chloride 0.9% 1,000 ML IV SCH ×2 (00:14→10:26)
[2017-02-20] MEDS: Albuterol-Ipratrop 3 mg / 0.5 (3 ml) UD IH SCH ×2 (01:02→20:06)
[2017-02-20] MEDS: Piperacillin/Tazobact 3.375 GM in Sodium Chloride 0.9% 100 ML IVPB SCH ×2 (03:57→10:25)
[2017-02-20] MEDS: Insulin Lispro (humaLOG) 100 Units/ml Inj SC SCH ×4 (06:30→21:57)
[2017-02-20] MEDS: Saccharomyces Boulardi 250 mg Cap PO SCH ×2 (10:29→19:52)
[2017-02-20] MEDS: Saliva Substitute(Caphosol) 15 ML SOL MM SCH ×4 (10:29→21:54)
[2017-02-20] MEDS: Timolol 0.25% Ophth SOLN OU SCH (10:31)
[2017-02-20] MEDS ORDERED: Dextrose 50% SYRINGE Inj (50 ml) IVP PRN (11:40)
[2017-02-20] MEDS ORDERED: Sodium Chloride 0.9% 1,000 ML IV SCH (14:00)
[2017-02-20] MEDS: Meropenem 1 GM in Sodium Chloride 0.9% 100 ML IVPB SCH ×2 (14:48→19:49)
[2017-02-20] MEDS: Latanoprost 0.005% Opht SOUTION OU SCH (21:59)
[2017-02-21] MEDS: Meropenem 1 GM in Sodium Chloride 0.9% 100 ML IVPB SCH ×2 (00:36→08:21)
[2017-02-21] MEDS: Albuterol-Ipratrop 3 mg / 0.5 (3 ml) UD IH SCH ×2 (00:59→14:23)
--- NOTE | 2017-02-21 01:23 | CP.PCM.PN ---
Subjective - Date & Time of Evaluation Date of Evaluation: 02/20/17 Time of Evaluation: 15:00 Objective - Vital Signs/Intake and Output Vital Signs (last 24 hours): Temp Pulse Resp BP Pulse Ox 97.7 F 78 18 78/36 L 100 02/21/17 00:13 02/21/17 00:13 02/21/17 00:13 02/21/17 00:13 02/21/17 00:13 - Medications Medications: Current Medications Acetaminophen (Tylenol 325mg Tab) 650 mg PO Q4H PRN PRN Reason: Temp >100 Acetaminophen (Tylenol 325mg Tab) 650 mg PO Q4H PRN PRN Reason: Pain, Mild (1-3) Al Hydrox/Mg Hydrox/Simethicone (Maalox Plus 30 Ml) 30 ml PO Q4H PRN PRN Reason: heartburn/indigestion Albuterol/Ipratropium (Duoneb 3 Mg/0.5 Mg (3 Ml) Ud) 3 ml IH RQ6 [facility] Last Admin: 02/20/17 20:06 Dose: 3 ml Dextrose (Dextrose 50% Inj) 50 ml IVP PRN PRN PRN Reason: Hypoglycemia Last Admin: 02/20/17 11:52 Dose: 50 ml Famotidine (Pepcid) 20 mg PO DAILY [facility] Last Admin: 02/20/17 10:30 Dose: Not Given Finasteride (Proscar) 5 mg PO DAILY [facility] Last Admin: 02/20/17 10:30 Dose: Not Given Guaifenesin (Robitussin) 200 mg PO Q6H PRN PRN Reason: Cough Heparin Sodium (Porcine) (Heparin) 5,000 units SC Q8 [facility] PRN Reason: Protocol Last Admin: 02/20/17 19:53 Dose: Not Given Dextrose/Sodium Chloride (Dextrose 5%-0.9% Ns 500 Ml) 1,000 mls @ 150 mls/hr IV .Q6H40M [facility] Stop: 02/21/17 11:43 Last Admin: 02/20/17 19:51 Dose: 150 mls/hr Meropenem 1 gm/ Sodium (Chloride) 100 mls @ 100 mls/hr IVPB Q8 [facility] PRN Reason: Protocol Last Admin: 02/21/17 00:36 Dose: 100 mls/hr Sodium Chloride (Sodium Chloride 0.9%) 1,000 mls @ 999 mls/hr IV .Q1H1M [facility] Stop: 02/21/17 13:52 Last Admin: 02/20/17 14:24 Dose: 999 mls/hr Insulin Human Lispro (Humalog) 0 units SC ACHS [facility] PRN Reason: Protocol Last Admin: 02/20/17 21:57 Dose: Not Given Latanoprost (Xalatan Opht) 1 drop OU HS [facility] Last Admin: 02/20/17 21:59 Dose: 1 drop Magnesium Hydroxide (Milk Of Magnesia) 30 ml PO DAILY PRN PRN Reason: Constipation Mesalamine (Delzicol) 800 mg PO BID [facility] Saccharomyces Boulardii (Florastor) 250 mg PO BID [facility] Last Admin: 02/20/17 19:52 Dose: Not Given Saliva Substitute (Caphosol 15 Ml) 15 ml MM QID [facility] Last Admin: 02/20/17 21:54 Dose: Not Given Scopolamine (Transderm-Scop) 1 patch TD Q3D [facility] Last Admin: 02/18/17 06:02 Dose: 1 patch Silver Sulfadiazine (Silvadene 1% 20 Gm) 1 ea TOP QSHIFT [facility] Last Admin: 02/19/17 21:26 Dose: 1 applic Sitagliptin Phosphate (Januvia) 50 mg PO DAILY [facility] Last Admin: 02/20/17 10:30 Dose: Not Given Tamsulosin HCl (Flomax) 0.8 mg PO HS [facility] Last Admin: 02/20/17 21:55 Dose: Not Given Timolol Maleate (Timoptic 0.25% Oph Soln) 1 drop OU DAILY [facility] Last Admin: 02/20/17 10:31 Dose: 1 drop Vitamin A (Vitamin A & D Oint Ud Foilpak) 1 ea TOP QSHIFT [facility] Last Admin: 02/19/17 21:27 Dose: 1 ea - Labs Labs: 02/18/17 12:05 02/18/17 12:05
[2017-02-21] MEDS: Insulin Lispro (humaLOG) 100 Units/ml Inj SC SCH ×2 (07:41→11:39)
[2017-02-21 07:51] VITALS: RESP 20
[2017-02-21] MEDS: Saliva Substitute(Caphosol) 15 ML SOL MM SCH ×2 (08:20→14:33)
[2017-02-21] MEDS: Saccharomyces Boulardi 250 mg Cap PO SCH (08:20)
[2017-02-21] MEDS: Timolol 0.25% Ophth SOLN OU SCH (08:22)
[2017-02-21] MEDS ORDERED: Dextrose 5%/0.9% NS 1,000 ML IV SCH (08:45)
[2017-02-21 12:24] VITALS: BP 73/49
--- NOTE | 2017-02-21 13:54 | CP.PCM.CON ---
History of Present Illness - History of Present Illness History of Present Illness: Patient is an 81 y/o M with colon cancer, anemia, dm, sent from [facility] who was supposed to be transferred to [facility], but came to [facility], with DNR/DNI, sent for O2 desat to 88%. Patinet non-verbal and unable to provide additional history rx for sepsis and pneumonia in progress pt is DNR/DNI cultures labs and xrays reviewed discussed with Dr Hurley Review of Systems - Review of Systems Systems not reviewed;Unavailable: Altered Mental Status - Constitutional Constitutional: As Per HPI - EENT Eyes: absent: As Per HPI, Blind Spots, Blurred Vision, Change in Vision, Decreased Night Vision, Diplopia, Discharge, Dry Eye, Exophthalmos, Floaters, Irritation, Itchy Eyes, Loss of Peripheral Vision, Pain, Photophobia, Requires Corrective Lenses, Sees Flashes, Spots in Vision, Tunnel Vision, Other Visual Disturbances, Loss of Vision, Other Ears: absent: As Per HPI, Decreased Hearing, Ear Discharge, Ear Pain, Tinnitus, Abnormal Hearing, Disequilibrium, Dizziness, Other Nose/Mouth/Throat: absent: As Per HPI, Epistaxis, Nasal Congestion, Nasal Discharge, Nasal Obstruction, Nasal Trauma, Nose Pain, Post Nasal Drip, Sinus Pain, Sinus Pressure, Bleeding Gums, Change in Voice, Dental Pain, Dry Mouth, Dysphagia, Halitosis, Hoarsness, Lip Swelling, Mouth Lesions, Mouth Pain, Odynophagia, Sore Throat, Throat Swelling, Tongue Swelling, Facial Pain, Neck Pain, Neck Mass, Other - Cardiovascular Cardiovascular: absent: As Per HPI, Acrocyanosis, Chest Pain, Chest Pain at Rest , Chest Pain with Activity, Claudication, Diaphoresis, Dyspnea, Dyspnea on Exertion, Edema, Irregular Heart Rhythm, Pain Radiating to Arm/Neck/Jaw, Leg Edema, Leg Ulcers, Lightheadedness, Orthopnea, Palpitations, Paroxysmal Nocturnal Dyspnea, Pedal Edema, Radiating Pain, Rapid Heart Rate, Slow Heart Rate, Syncope, Other - Respiratory Respiratory: As Per HPI - Gastrointestinal Gastrointestinal: As Per HPI - Genitourinary Genitourinary: absent: As Per HPI, Change in Urinary Stream, Difficulty Urinating, Dysuria, Flank Pain, Hematuria, Pyuria, Nocturia, Urinary Incontinence, Urinary Frequency, Urinary Hesitance, Urinary Urgency, Voiding Freq/Small Amts, Freq UTI, Hx Renal/Bladder Calculi, Hx /Renal Surgery, Bladder Distension, Other - Musculoskeletal Musculoskeletal: absent: As Per HPI, Abnormal Gait, Arthralgias, Atrophy, Back Pain, Deformity, Joint Swelling, Limited Range of Motion, Loss of Height, Muscle Cramps, Muscle Weakness, Myalgias, Neck Pain, Numbness, Radiating Pain into Limb, Stiffness, Tingling, Other - Integumentary Integumentary: absent: As Per HPI, Acne, Alopecia, Bleeding Lesions, Change in Hair, Change in Nails, Change in Pigmentation, Changing Lesions, Dry Skin, Erythema, Furuncle, Hirsutism, Lesions, New Lesions, Non-Healing Lesions, Photosensitivity, Pruritus, Rash, Skin Pain, Skin Ulcer, Sores, Striae, Swelling , Unusual Bruising, Wounds, Jaundice, Other - Neurological Neurological: As Per HPI - Psychiatric Psychiatric: absent: As Per HPI, Abnormal Sleep Pattern, Anhedonia, Anxiety, Auditory Hallucinations, Behavioral Changes, Change in Appetite, Change in Libido, Confusion, Depression, Difficulty Concentrating, Hallucinations, Homicidal Ideation, Hopelessness, Irritability, Memory Loss, Mood Swings, Panic Attacks, Paranoia, Suicidal Ideation, Visual Hallucinations, Tactile Hallucinations, Other - Endocrine Endocrine: absent: Change in Body Appearance, Change in Libido, Cold Intolorance , Deepening of Voice, Excessive Sweating, Fatigue, Flushing, Heat Intolorance, Increase in Ring/Shoe/Hat Size, Palpitations, Polydipsia, Polyphagia, Polyuria, Other - Hematologic/Lymphatic Hematologic: absent: As Per HPI, Easy Bleeding, Easy Bruising, Lymphadenopathy, Other Past Patient History - Infectious Disease Hx of Infectious Diseases: None - Past Medical History & Family History Past Medical History?: Yes - Past Social History Smoking Status: Never Smoked - CARDIAC Hx Hypertension: Yes (secondary) - HEENT Hx Glaucoma: Yes (unspecified) - RENAL Hx Chronic Kidney Disease: No - ENDOCRINE/METABOLIC Hx Diabetes Mellitus Type 2: Yes - HEMATOLOGICAL/ONCOLOGICAL Hx Blood Disorders: Yes Hx Anemia: Yes - MUSCULOSKELETAL/RHEUMATOLOGICAL Hx Falls: No - GASTROINTESTINAL Hx Gastrointestinal Disorders: Yes Hx Gastroesophageal Reflux: Yes - GENITOURINARY/GYNECOLOGICAL Hx Prostate Problems: Yes - PSYCHIATRIC Hx Substance Use: No - ANESTHESIA Hx Anesthesia: Yes Hx Anesthesia Reactions: No Meds Allergies/Adverse Reactions: Allergies Allergy/AdvReac Type Severity Reaction Status Date / Time No Known Allergies Allergy Verified 02/17/17 17:15 - Medications Medications: Current Medications Acetaminophen (Tylenol 325mg Tab) 650 mg PO Q4H PRN PRN Reason: Temp >100 Acetaminophen (Tylenol 325mg Tab) 650 mg PO Q4H PRN PRN Reason: Pain, Mild (1-3) Al Hydrox/Mg Hydrox/Simethicone (Maalox Plus 30 Ml) 30 ml PO Q4H PRN PRN Reason: heartburn/indigestion Albuterol/Ipratropium (Duoneb 3 Mg/0.5 Mg (3 Ml) Ud) 3 ml IH RQ6 [facility] Last Admin: 02/21/17 00:59 Dose: 3 ml Dextrose (Dextrose 50% Inj) 50 ml IVP PRN PRN PRN Reason: Hypoglycemia Last Admin: 02/20/17 11:52 Dose: 50 ml Famotidine (Pepcid) 20 mg PO DAILY [facility] Last Admin: 02/21/17 08:21 Dose: Not Given Finasteride (Proscar) 5 mg PO DAILY [facility] Last Admin: 02/21/17 08:21 Dose: Not Given Guaifenesin (Robitussin) 200 mg PO Q6H PRN PRN Reason: Cough Heparin Sodium (Porcine) (Heparin) 5,000 units SC Q8 [facility] PRN Reason: Protocol Last Admin: 02/20/17 19:53 Dose: Not Given Meropenem 1 gm/ Sodium (Chloride) 100 mls @ 100 mls/hr IVPB Q8 [place] PRN Reason: Protocol Last Admin: 02/21/17 08:21 Dose: 100 mls/hr Dextrose/Sodium Chloride (Dextrose 5%/0.9% Ns 1000 Ml) 1,000 mls @ 150 mls/hr IV .Q6H40M [facility] Stop: 02/22/17 08:41 Last Admin: 02/21/17 09:56 Dose: 150 mls/hr Insulin Human Lispro (Humalog) 0 units SC ACHS [facility]ITA PRN Reason: Protocol Last Admin: 02/21/17 11:39 Dose: Not Given Latanoprost (Xalatan Opht) 1 drop OU HS [facility] Last Admin: 02/20/17 21:59 Dose: 1 drop Magnesium Hydroxide (Milk Of Magnesia) 30 ml PO DAILY PRN PRN Reason: Constipation Mesalamine (Delzicol) 800 mg PO BID [facility] Saccharomyces Boulardii (Florastor) 250 mg PO BID [facility] Last Admin: 02/21/17 08:20 Dose: Not Given Saliva Substitute (Caphosol 15 Ml) 15 ml MM QID [facility] Last Admin: 02/21/17 08:20 Dose: Not Given Scopolamine (Transderm-Scop) 1 patch TD Q3D [facility] Last Admin: 02/18/17 06:02 Dose: 1 patch Silver Sulfadiazine (Silvadene 1% 20 Gm) 1 ea TOP QSHIFT [facility] Last Admin: 02/19/17 21:26 Dose: 1 applic Sitagliptin Phosphate (Januvia) 50 mg PO DAILY [facility] Last Admin: 02/21/17 08:20 Dose: Not Given Tamsulosin HCl (Flomax) 0.8 mg PO HS [facility] Last Admin: 02/20/17 21:55 Dose: Not Given Timolol Maleate (Timoptic 0.25% Ophth Soln) 1 drop OU DAILY [facility] Last Admin: 02/21/17 08:22 Dose: 1 drop Vitamin A (Vitamin A & D Oint Ud Foilpak) 1 ea TOP QSHIFT [facility] Last Admin: 02/19/17 21:27 Dose: 1 ea Physical Exam - Constitutional Appears: Confused, Cachectic, Chronically Ill - Head Exam Head Exam: ATRAUMATIC, NORMAL INSPECTION, NORMOCEPHALIC - Eye Exam Eye Exam: Normal appearance, PERRL. absent: Scleral icterus - ENT Exam ENT Exam: Mucous Membranes Dry, Normal External Ear Exam, Normal Oropharynx - Neck Exam Neck exam: Negative for: Lymphadenopathy - Respiratory Exam Respiratory Exam: Decreased Breath Sounds, Prolonged Expiratory Phase, Rales, Rhonchi - Cardiovascular Exam Cardiovascular Exam: REGULAR RHYTHM, +S1, +S2. absent: Gallop - GI/Abdominal Exam GI & Abdominal Exam: Diminished Bowel Sounds, Soft. absent: Tenderness - Rectal Exam Rectal Exam: Deferred - Exam Exam: NORMAL INSPECTION - Extremities Exam Extremities exam: Positive for: pedal pulses present. Negative for: calf tenderness, pedal edema, tenderness - Back Exam Back exam: absent: CVA tenderness (L), CVA tenderness (R) - Neurological Exam Neurological exam: Altered - Psychiatric Exam Psychiatric exam: Depressed - Skin Skin Exam: Dry Results - Vital Signs Recent Vital Signs: Last Vital Signs Temp 97.4 F L 02/21/17 12:23 Pulse 89 02/21/17 12:23 Resp 20 02/21/17 12:23 BP 73/49 L 02/21/17 12:23 Pulse Ox 100 02/21/17 12:23 - Labs Result Diagrams: 02/18/17 12:05 02/18/17 12:05 Labs: Laboratory Results - last 24 hr 02/20/17 02/20/17 02/21/17 15:50 21:02 05:24 POC Glucose (mg/dL) 90 121 H 130 H 02/21/17 11:03 POC Glucose (mg/dL) 132 H Assessment & Plan (1) Altered mental status Status: Acute (2) Hypoxia Status: Acute (3) Pneumonia Status: Acute (4) Sepsis Status: Acute (5) UTI (urinary tract infection) Status: Acute - Assessment and Plan (Free Text) Assessment: ESBL E coli in blood and urine severe sepsis Ca colon resp failure r/o pneumonia , CHF grave prognosis
[2017-02-21] MEDS ORDERED: Fluconazole IV 200mg/100 ml NS 100 ML IVPB SCH (14:00)
[2017-02-21 15:49] VITALS: PULSE 86; TEMP 97.3
--- NOTE | 2017-02-21 16:10 | CP.PCM.PCO ---
Assessment/Plan - Assessment and Plan (Free Text) Assessment: Patient will be discharged to Hospice. Stephane tours hostess from [facility] has spoken to family, nephew Mr Yang. Patient will be under Dr Hurley for inpatient hospice.
--- NOTE | 2017-02-22 00:50 | CP.PCM.DIS ---
Provider - Provider Date of Admission: 02/17/17 21:31 Attending physician: Ginger Hurley MD Time Spent in preparation of Discharge (in minutes): 20 Diagnosis - Discharge Diagnosis (1) Admission for hospice care Status: Acute (2) Septic shock Status: Acute Hospital Course - Lab Results Lab Results: Micro Results 02/17/17 22:10 Urine Urine Culture - Final Escherichia Coli 02/17/17 18:00 Blood Blood Culture - Final Escherichia Coli 02/17/17 18:00 Blood Gram Stain - Final Most Recent Lab Values WBC 7.7 K/uL (4.8-10.8) 02/18/17 12:05 RBC 2.59 Mil/uL (4.40-5.90) L 02/18/17 12:05 Hgb 7.5 g/dL (12.0-18.0) L 02/18/17 12:05 Hct 23.7 % (35.0-51.0) L 02/18/17 12:05 MCV 91.8 fl (80.0-94.0) 02/18/17 12:05 MCH 29.0 pg (27.0-31.0) 02/18/17 12:05 MCHC 31.6 g/dL (33.0-37.0) L 02/18/17 12:05 RDW 19.6 % (11.5-14.5) H 02/18/17 12:05 Plt Count 65 K/uL (130-400) L 02/18/17 12:05 MPV 10.8 fl (7.2-11.7) 02/17/17 18:10 Neut % (Auto) 95.5 % (50.0-75.0) H 02/17/17 18:10 Lymph % (Auto) 2.3 % (20.0-40.0) L 02/17/17 18:10 [place] % (Auto) 0.9 % (0.0-10.0) 02/17/17 18:10 Eos % (Auto) 1.0 % (0.0-4.0) 02/17/17 18:10 Baso % (Auto) 0.3 % (0.0-2.0) 02/17/17 18:10 Neut # 5.7 K/uL (1.8-7.0) 02/17/17 18:10 Lymph # 0.1 K/uL (1.0-4.3) L 02/17/17 18:10 [place] # 0.1 K/uL (0.0-0.8) 02/17/17 18:10 Eos # 0.1 K/uL (0.0-0.7) 02/17/17 18:10 Baso # 0.0 K/uL (0.0-0.2) 02/17/17 18:10 Neutrophils % (Manual) 83 % (42-75) H 02/17/17 18:10 Band Neutrophils % 6 % (0-2) H 02/17/17 18:10 Lymphocytes % (Manual) 6 % (20-50) L 02/17/17 18:10 Monocytes % (Manual) 4 % (0-10) 02/17/17 18:10 Eosinophils % (Manual) 1 % (0-7) 02/17/17 18:10 Platelet Estimate Normal (NORMAL) 02/17/17 18:10 Large Platelets Present 02/17/17 18:10 Anisocytosis (manual) Moderate 02/17/17 18:10 Macrocytosis (manual) Slight 02/17/17 18:10 Ovalocytes Slight 02/17/17 18:10 Bruna Cells Slight 02/17/17 18:10 pCO2 27 mm/Hg (35-45) L 02/17/17 19:00 pO2 124 mm/Hg (80-100) H 02/17/17 19:00 HCO3 17.5 mmol/L (21-28) L 02/17/17 19:00 ABG pH 7.35 (7.35-7.45) 02/17/17 19:00 ABG Total CO2 15.7 mmol/L (22-28) L 02/17/17 19:00 ABG O2 Saturation 99.4 % (95-98) H 02/17/17 19:00 ABG O2 Content 13.3 ML/dL (15-23) L 02/17/17 19:00 ABG Base Excess -9.5 mmol/L (-2.0-3.0) L 02/17/17 19:00 ABG Hemoglobin 9.6 g/dL (11.7-17.4) L 02/17/17 19:00 ABG Carboxyhemoglobin 0.5 % (0.5-1.5) 02/17/17 19:00 POC ABG HHb (Measured) 0.6 % (0.0-5.0) 02/17/17 19:00 ABG Methemoglobin 2.3 % (0.0-3.0) 02/17/17 19:00 ABG O2 Capacity 13.4 mL/dL (16-24) L 02/17/17 19:00 Mejia Test Yes 02/17/17 19:00 VBG pH 7.34 (7.32-7.43) 02/17/17 18:20 VBG pCO2 31 mmHg (40-60) L 02/17/17 18:20 VBG HCO3 18.4 mmol/L 02/17/17 18:20 VBG Total CO2 17.7 mmol/L (22-28) L 02/17/17 18:20 VBG O2 Sat (Calc) 87.8 % (40-65) H 02/17/17 18:20 VBG Base Excess -7.9 mmol/L (0.0-2.0) L 02/17/17 18:20 VBG Potassium 3.5 mmol/L (3.6-5.2) L 02/17/17 18:20 A-a O2 Difference 555.0 mm/Hg 02/17/17 19:00 Hgb O2 Saturation 96.6 % (95.0-98.0) 02/17/17 19:00 Sodium 144.0 mmol/L (132-148) 02/17/17 18:20 Chloride 121.0 mmol/L (98-107) H 02/17/17 18:20 Glucose 172 mg/dL (75-110) H 02/17/17 18:20 Lactate 1.6 mmol/L (0.7-2.1) 02/17/17 18:20 Vent Mode Nrm 02/17/17 19:00 FiO2 100.0 % 02/17/17 19:00 Sodium 148 mmol/l (132-148) 02/18/17 12:05 Potassium 3.1 MMOL/L (3.6-5.0) L 02/18/17 12:05 Chloride 124 mmol/L (98-107) H 02/18/17 12:05 Carbon Dioxide 15 mmol/L (22-30) L 02/18/17 12:05 Anion Gap 12 (10-20) 02/18/17 12:05 BUN 57 mg/dl (9-20) H 02/18/17 12:05 Creatinine 1.5 mg/dl (0.8-1.5) 02/18/17 12:05 Est GFR ( Amer) 54 02/18/17 12:05 Est GFR (Non-Af Amer) 45 02/18/17 12:05 POC Glucose (mg/dL) 161 mg/dL (65-110) H 02/21/17 16:06 Random Glucose 163 mg/dL (75-110) H 02/18/17 12:05 Lactic Acid 2.7 MMOL/L (0.7-2.1) H 02/18/17 12:05 Calcium 9.0 mg/dL (8.4-10.2) 02/18/17 12:05 Phosphorus 3.2 mg/dl (2.5-4.5) 02/18/17 12:05 Magnesium 1.9 MG/DL (1.6-2.3) 02/18/17 12:05 Total Bilirubin 0.3 mg/dl (0.2-1.3) 02/18/17 12:05 AST 8 U/L (17-59) L 02/18/17 12:05 ALT 26 U/L (21-72) 02/18/17 12:05 Alkaline Phosphatase 115 U/L (38-126) 02/18/17 12:05 Total Creatine Kinase < 20 U/L (55-170) L 02/17/17 18:10 CK-MB (Mass) 0.69 ng/mL (0.0-3.38) 02/17/17 18:10 Troponin I 0.0350 ng/mL (0.00-0.120) 02/18/17 12:05 NT-Pro-B Natriuret Pep 2440 pg/ml (0-900) H 02/17/17 18:10 Total Protein 3.6 G/DL (6.3-8.2) L 02/18/17 12:05 Albumin 1.5 g/dL (3.5-5.0) L 02/18/17 12:05 Globulin 2.1 gm/dL (2.2-3.9) L 02/18/17 12:05 Albumin/Globulin Ratio 0.7 (1.0-2.1) L 02/18/17 12:05 Venous Blood Potassium 3.5 mmol/L (3.6-5.2) L 02/17/17 18:20 Urine Color Yellow (YELLOW) 02/17/17 22:10 Urine Clarity Cloudy (Clear) 02/17/17 22:10 Urine pH 6.0 (5.0-8.0) 02/17/17 22:10 Ur Specific [place] < 1.005 (1.003-1.030) 02/17/17 22:10 Urine Protein Negative mg/dL (NEGATIVE) 02/17/17 22:10 Urine Glucose (UA) Neg mg/dL (Normal) 02/17/17 22:10 Urine Ketones Negative mg/dL (NEGATIVE) 02/17/17 22:10 Urine Blood Negative (NEGATIVE) 02/17/17 22:10 Urine Nitrate Negative (NEGATIVE) 02/17/17 22:10 Urine Bilirubin Negative (NEGATIVE) 02/17/17 22:10 Urine Urobilinogen 0.2-1.0 mg/dL (0.2-1.0) 02/17/17 22:10 Ur Leukocyte Esterase Large [place]/uL (Negative) 02/17/17 22:10 Urine RBC (Auto) 4 /hpf (0-3) H 02/17/17 22:10 Urine Microscopic WBC 19 /hpf (0-5) H 02/17/17 22:10 Ur Squamous Epith Cells < 1 /hpf (0-5) 02/17/17 22:10 Urine Bacteria Many (<OCC) H 02/17/17 22:10 Influenza Typ A,B (EIA) Negative for flu a/b (NEGATIVE) 02/17/17 18:10 Discharge Exam - Head Exam Head Exam: ATRAUMATIC, NORMAL INSPECTION, NORMOCEPHALIC Discharge Plan - Follow Up Plan Condition: SERIOUS Disposition: HOSPICE - MEDICAL FACILITY
[2017-02-22 11:24] VITALS: O2SAT 98
== END 2017-02-21 16:07 | disposition hospice, inpatient (51) | DRG 871 ==
LOC: H.ER 17:12 → H.ERHOLD 21:31 → H.TEL 23:40
PROVIDERS: ADMIT Internal Medicine; ATTEND Internal Medicine
DX: A41.51 Sepsis due to Escherichia coli [E. coli] (principal); R65.21 Severe sepsis with septic shock; J96.01 Acute respiratory failure with hypoxia; J18.9 Pneumonia, unspecified organism; C18.9 Malignant neoplasm of colon, unspecified; D64.9 Anemia, unspecified; N39.0 Urinary tract infection, site not specified; E11.9 Type 2 diabetes mellitus without complications; Z66 Do not resuscitate

== ENCOUNTER 2017-02-21 16:11 | Inpatient (IN) | payer OTHER ==
[2017-02-21 16:25] VITALS: BMI 22.6
[2017-02-21] MEDS ORDERED: Morphine 100 MG in Sodium Chloride 0.9% 100 ML IVPB SCH (16:30)
--- NOTE | 2017-02-21 16:40 | CP.PCM.PCO ---
Assessment/Plan - Assessment and Plan (Free Text) Plan: patient has been admitted under inpatient hospice under Dr Hurley. Orders placed as per Hospice team recommendations, reviewed with Dr Hurley. Nephew aware of current patient status. Will cont to monitor patient, RN aware of plan. Comfort measures in place.
--- NOTE | 2017-02-22 00:47 | CP.PCM.HP ---
History of Present Illness - History of Present Illness History of Present Illness: CC: Admission to Hospice Care HPI: 81yoM who has been treated for Sepstic shock, ACute Respiratory Failure, Hypothermia and Persistent Hypotension for the last 3 days, and DNR/DNI with Poor Prognosis and the family requested Hospice Care. The Hospice care team Evaluated the patient and accepted to Inpatient Hospice. Family signed for the Inpatient Hospice, and admitted to Inpatient Hospice. Present on Admission - Present on Admission Any Indicators Present on Admission: Yes History of DVT/PE: No History of Uncontrolled Diabetes: Yes Urinary Catheter: Yes Decubitus Ulcer Present: No Review of Systems - Review of Systems All systems: reviewed and no additional remarkable complaints except Past Patient History - Infectious Disease Hx of Infectious Diseases: None - Past Medical History & Family History Past Medical History?: Yes Past Family History: Reviewed and not pertinent - Past Social History Smoking Status: Never Smoked Alcohol: None Drugs: Denies - CARDIAC Hx Cardiac Disorders: Yes Hx Hypotension: Yes - PULMONARY Hx Respiratory Disorders: No - NEUROLOGICAL Hx Neurological Disorder: No - HEENT Hx HEENT Problems: Yes Hx Glaucoma: Yes (unspecified) - RENAL Hx Chronic Kidney Disease: No - ENDOCRINE/METABOLIC Hx Endocrine Disorders: Yes Hx Diabetes Mellitus Type 2: Yes - HEMATOLOGICAL/ONCOLOGICAL Hx Blood Disorders: Yes Hx AIDS: No Hx Anemia: Yes Hx Human Immunodeficiency Virus (HIV): No - INTEGUMENTARY Hx Dermatological Problems: No - MUSCULOSKELETAL/RHEUMATOLOGICAL Hx Musculoskeletal Disorders: No Hx Falls: No - GASTROINTESTINAL Hx Gastrointestinal Disorders: Yes Hx Gastroesophageal Reflux: Yes - GENITOURINARY/GYNECOLOGICAL Hx Genitourinary Disorders: Yes Hx Prostate Problems: Yes (BPH) - PSYCHIATRIC Hx Psychophysiologic Disorder: No Hx Substance Use: No - SURGICAL HISTORY Hx Surgeries: No - ANESTHESIA Hx Anesthesia: Yes Hx Anesthesia Reactions: No Hx Malignant Hyperthermia: No Has any member of the family had a problem w/ anesthesia?: No Meds Allergies/Adverse Reactions: Allergies Allergy/AdvReac Type Severity Reaction Status Date / Time No Known Allergies Allergy Verified 02/17/17 17:15 Physical Exam - Constitutional Appears: In Acute Distress Additional comments: Comatose - Head Exam Head Exam: ATRAUMATIC, NORMAL INSPECTION, NORMOCEPHALIC - Cardiovascular Exam Cardiovascular Exam: +S1, +S2 - Neurological Exam Additional comments: Lethargy Results - Vital Signs Recent Vital Signs: Last Vital Signs Temp 97 F L 02/22/17 00:36 Pulse 82 02/22/17 00:36 Resp 16 02/22/17 00:36 BP 78/48 L 02/22/17 00:36 Pulse Ox 100 02/22/17 00:36 Assessment & Plan (1) Admission for hospice care Assessment and Plan: O2 Vai NC Morphine and Ativan IV PRN NO Blood WorkVital signs daily only D/C IVF and IV antbiotics Status: Acute Priority: High
[2017-02-22 12:24] VITALS: O2SAT 98
[2017-02-22 15:52] VITALS: BP 40/24; PULSE 82; RESP 19; TEMP 98.2
--- NOTE | 2017-02-22 18:14 | CP.PCM.PRO ---
Pronouncement of Note - Clinical Findings Physical Exam: No Response Verbal/Painful Stimuli, Absent Heart & Breath Sounds , Pupils Fixed & Dilated, Absence of Vital Signs - Pronouncement Time Time of Pronouncement of : 18:03 - Notifications Pronouncement Notifications: Family Notified, Atending Notified Therapeutic Recreation Specialist Notified: No - Autopsy Autopsy Requested: No [place]: Case #[id number] Additional Comments: case assigned to Dr. Stinson
--- NOTE | 2017-02-22 22:57 | CP.PCM.DIS ---
Provider - Provider Date of Admission: 02/21/17 16:28 Attending physician: Ginger Hurley MD Time Spent in preparation of Discharge (in minutes): 30 Diagnosis - Discharge Diagnosis (1) Admission for hospice care Status: Acute Priority: High (2) Hypoxia Status: Acute (3) Pneumonia Status: Acute (4) Septic shock Status: Acute Priority: High (5) UTI (urinary tract infection) Status: Acute Priority: High Hospital Course - Lab Results Lab Results: Most Recent Lab Values POC Glucose (mg/dL) 55 mg/dL (65-110) L 02/22/17 04:43 - Hospital Course Hospital Course: on the 2nd day of Hospice on 02/22/2017 @18:03 Discharge Plan - Follow Up Plan Condition: Disposition: WITH WITHOUT AUTOPSY Patient education suggested?: No
== END 2017-02-22 18:03 | DRG 871 ==
LOC: H.TEL 16:28
PROVIDERS: ADMIT Internal Medicine; ATTEND Internal Medicine
DX: A41.9 Sepsis, unspecified organism (principal); R65.21 Severe sepsis with septic shock; J96.01 Acute respiratory failure with hypoxia; J18.9 Pneumonia, unspecified organism; N39.0 Urinary tract infection, site not specified; Z51.5 Encounter for palliative care; Z66 Do not resuscitate